=== PATIENT | male | born 1990 | race African-American/Black ===

== ENCOUNTER 2024-08-31 19:15 | Emergency (ER) | payer MEDICAID ==
[~2024-08-31] VITALS: Ht 172.7 cm; Wt 122.5 kg
[2024-08-31] MEDS: ONDANSETRON HCL/PF 4 MG/2 ML VIAL IVP ONE ×2 (19:55→21:38)
[2024-08-31] MEDS: IV NS 0.9% 1,000 ML BAG IV ONE (19:55)
[2024-08-31] MEDS ORDERED: ONDANSETRON HCL/PF 4 MG/2 ML VIAL ONE ×2 (19:55→21:34)
[2024-08-31] MEDS ORDERED: KETOROLAC TROMETHAMINE INJ 30 MG/ML VIAL ONE (20:00)
[2024-08-31] MEDS: KETOROLAC TROMETHAMINE INJ 30 MG/ML VIAL IV ONE (20:01)
[2024-08-31] MEDS ORDERED: PANTOPRAZOLE 40 MG VIAL ONE (20:02)
[2024-08-31] MEDS: FAMOTIDINE/PF INJ 20 MG/2 ML VIAL IV ONE (20:03)
[2024-08-31] MEDS: PANTOPRAZOLE 40 MG VIAL IV ONE (20:03)
[2024-08-31] MEDS ORDERED: FAMOTIDINE/PF INJ 20 MG/2 ML VIAL IV ONE (20:03)
[2024-08-31 20:33] LABS: BASOPHILS % (AUTO) 0.3 % (0.0-2.0); HEMATOCRIT 46 % (39-51); HEMOGLOBIN 15.3 g/dL (13.5-17.5); LYMPHOCYTES # (AUTO) 0.9 K/uL (0.8-4.8); LYMPHOCYTES % (AUTO) 6.5 % (20.0-44.0); MEAN CORPUSCULAR HEMOGLOBIN 29 PG (26.0-33.0); MEAN CORPUSCULAR HGB CONC 33 g/dl (31.0-36.0); MEAN CORPUSCULAR VOLUME 88 fL (80-96); MONOCYTES # (AUTO) 0.2 K/uL (0.1-1.30); MONOCYTES % (AUTO) 1.9 % (2.0-12.0); NEUTROPHILS % (AUTO) 91.3 % (43.0-81.0); PLATELET COUNT (AUTO) 282 K/uL (150-450); RED BLOOD CELL COUNT(AUTO) 5.23 MIL/uL (4.5-6.0); RED CELL DISTRIBUTION WIDTH 14.2 % (11.5-15.0); WHITE BLOOD COUNT (AUTO) 13.2 K/uL (4.3-11.0)
[2024-08-31 20:51] LABS: ALBUMIN 4.1 g/dL (3.4-5.0); BILIRUBIN,DIRECT 0.2 mg/dL (0.0-0.2); BILIRUBIN,TOTAL 0.7 mg/dL (0.2-1.0); CALCIUM, SERUM 9.1 mg/dL (8.5-10.1); POTASSIUM 3.3 mmol/L (3.5-5.1); TOTAL PROTEIN, SERUM 8.2 g/dL (6.4-8.2)
[2024-08-31] MEDS: DICYCLOMINE HCL 10 MG CAPSULE PO ONE (21:33)
[2024-08-31] MEDS ORDERED: DICYCLOMINE HCL 10 MG CAPSULE PO ONE (21:33)
[2024-08-31] MEDS ORDERED: DICY20TA11 PO (21:43)
[2024-08-31] MEDS ORDERED: ONDA4TAB5 PO (21:43)
[2024-08-31] MEDS ORDERED: MORPHINE SULFATE INJ 4 MG/ML DISP.SYRIN ONE (22:03)
[2024-08-31] MEDS: MORPHINE SULFATE INJ 2 MG/ML DISP.SYRIN IV ONE ×2 (22:04→23:56)
[2024-08-31] MEDS ORDERED: MORPHINE SULFATE INJ 2 MG/ML DISP.SYRIN ONE (23:56)
[2024-09-01 00:07] VITALS: BP 169/88; TEMP 97.6; O2SAT 99
== END 2024-09-01 00:08 | disposition home or self-care (01) ==
LOC: ER 19:29
DX: R10.30 Lower abdominal pain, unspecified (principal); R11.2 Nausea with vomiting, unspecified; R19.7 Diarrhea, unspecified; Z91.09 Other allergy status, other than to drugs and biological substances
CPT/HCPCS: 99285; 74176; 96374; 96375; 96361; 96376; 85025; 80048; 83690; 80076; 36415; J1885; J2270 ×2; J1308; J2405 ×2; J7030; J2470